=== PATIENT | male | born 1955 | race Caucasian/White ===

== ENCOUNTER 2017-10-19 01:59 | Inpatient (IN) | payer MEDICARE, MEDICAID ==
[2017-10-19 02:35] LABS: ADD MAN DIFF? NO
[2017-10-19] MEDS: FUROSEMIDE 40 MG/4 ML VIAL. IVP (02:36)
[2017-10-19] MEDS: methylPREDNISolone SOD SUCC PF 125 MG/2 ML VIAL. IV ×3 (02:36→21:19)
[2017-10-19] MEDS: ASPIRIN CHEWABLE 81 MG TABLET. PO (02:37)
[2017-10-19 02:40] LABS: BASO # 0.1 x10^3/uL (0.0-0.2); BASO % 1 % (0-3); EOS # 0.3 x10^3/uL (0.0-0.7); EOS % 3 % (0-3); HEMATOCRIT 47.2 % (39.0-53.0); HEMOGLOBIN 15.5 g/dL (13.0-17.5); LYMPH # 1.4 x10^3/uL (1.0-4.8); LYMPH % 14 % (24-48); MEAN CORPUSCULAR HEMOGLOBIN 26 pg (25-35); MEAN CORPUSCULAR HGB CONC 33 g/dL (31-37); MEAN CORPUSCULAR VOLUME 79 fL (79-100); MONO % 10 % (0-9); NEUT # 7.2 x10^3uL (1.8-7.7); NEUT % 71 % (31-73); PLATELET COUNT 217 x10^3/uL (140-400); RED BLOOD COUNT 5.99 x10^6/uL (4.30-5.70); RED CELL DISTRIBUTION WIDTH 18.7 % (11.5-14.5); WHITE BLOOD COUNT 10.1 x10^3/uL (4.0-11.0)
[2017-10-19] MEDS: IPRATRPIUM/ALBUTEROL 0.5/2.5MG 3 ML NEBU. NEB ×5 (02:40→23:39)
[2017-10-19 02:49] LABS: ANION GAP 8 (6-14); BLOOD UREA NITROGEN 24 mg/dL (8-26); BUN/CREATININE RATIO 18 (6-20); CALCIUM 8.6 mg/dL (8.5-10.1); CARBON DIOXIDE 31 mmol/L (21-32); CHLORIDE 98 mmol/L (98-107); CREATININE 1.3 mg/dL (0.7-1.3); GFR 55.9; GLUCOSE 226 mg/dL (70-99); POTASSIUM 4.1 mmol/L (3.5-5.1); SODIUM 137 mmol/L (136-145)
[2017-10-19 02:56] LABS: ALBUMIN 3.2 g/dL (3.4-5.0); ALBUMIN/GLOBULIN RATIO 0.7 (1.0-1.7); ALK PHOS 97 U/L (46-116); ALT (SGPT) 126 U/L (16-63); AST (SGOT) 54 U/L (15-37); TOTAL BILIRUBIN 0.3 mg/dL (0.2-1.0); TOTAL PROTEIN 7.6 g/dL (6.4-8.2)
[2017-10-19 02:57] LABS: TROPONINI < 0.017 ng/mL (0.000-0.055)
[2017-10-19 03:05] LABS: CKMB INDEX 1.8 % (0-4); CKMB MASS 3.7 ng/mL (0.0-3.6); CREATINE KINASE 201 U/L (39-308)
[2017-10-19 03:05] LABS: NT-PRO BNP 680 pg/mL (0-124)
[2017-10-19 09:31] LABS: BASE EXCESS ABG 3 mmol/L (-3-3); HCO3 ABG 28 mmol/L (21-28); PCO2 ABG 46 mmHg (35-46); PH ABG 7.41 (7.35-7.45); PO2 ABG 79 mmHg (65-108); SAT O2 ABG 96 % (92-99)
[2017-10-19 09:32] LABS: FIO2 ABG 44
[2017-10-19] MEDS: INSULIN GLARGINE 300 UNITS/3 ML INSULN.PEN. SQ ×2 (10:02→21:18)
[2017-10-19] MEDS: INSULIN LISPRO 300 UNITS/3 ML INSULN.PEN. SQ ×5 (10:03→18:10)
[2017-10-19] MEDS ORDERED: DEXTROSE 50% 25 GM / 50ML DISP.SYRIN. IV (11:15)
[2017-10-19] MEDS ORDERED: ALBUTEROL SULFATE 2.5 MG/3 ML NEBU. NEB (12:00)
[2017-10-19] MEDS ORDERED: BUDESONIDE 0.5 MG/2 ML NEBU. NEB (12:00)
[2017-10-19] MEDS ORDERED: IPRATRPIUM/ALBUTEROL 0.5/2.5MG 3 ML NEBU. NEB (12:00)
[2017-10-19] MEDS ORDERED: MINERAL OIL/PETROLATUM TOPICAL CREAM 113GM JAR. TP (12:00)
[2017-10-19] MEDS: BUDESONIDE 0.5 MG/2 ML NEBU. NEB ×2 (12:17→19:35)
[2017-10-19 12:27] LABS: POC GLUCOSE 325 mg/dL (70-99)
[2017-10-19 12:27] LABS: POC GLUCOSE 274 mg/dL (70-99)
[2017-10-19 12:52] LABS: CHOLESTEROL 137 mg/dL (0-200); HDLC 39 mg/dL (40-60); LDLC 48 mg/dL (0-100); NON-HDL CHOLESTEROL 98 mg/dL (0-129); TRIGLYCERIDES 249 mg/dL (0-150); VLDLC 50 mg/dL (0-40)
[2017-10-19 13:00] LABS: THYROID STIM HORMONE (TSH) 11.736 uIU/mL (0.358-3.74)
[2017-10-19] MEDS: APIXABAN 5 MG TABLET. PO ×2 (13:02→21:14)
[2017-10-19] MEDS: CHOLECALCIFEROL (VITAMIN D3) 1,000 UNIT TABLET PO (13:02)
[2017-10-19] MEDS: DOCUSATE SODIUM 100 MG CAPSULE. PO (13:03)
[2017-10-19] MEDS: FUROSEMIDE 80 MG TABLET. PO (13:03)
[2017-10-19] MEDS: POTASSIUM CHLORIDE 20 MEQ TABLET.ER. PO (13:03)
[2017-10-19] MEDS: FAMOTIDINE 20 MG TABLET. PO ×2 (13:03→21:14)
[2017-10-19] MEDS: METOPROLOL TART IMMED RELEASE 50 MG TABLET. PO ×2 (13:04→21:14)
[2017-10-19] MEDS: CALCIUM CARB/VIT D3 500/200 TABLET. PO (13:04)
[2017-10-19] MEDS: AMIODARONE HCL 200 MG TABLET. PO (13:04)
[2017-10-19] MEDS: SPIRONOLACTONE 25 MG TABLET PO (13:04)
[2017-10-19 13:10] LABS: CHOLESTEROL/HDL RATIO 3.5
[2017-10-19] MEDS: POLYETHYLENE GLYCOL 3350 17 GM PACKET. PO (13:19)
[2017-10-19] MEDS: GABAPENTIN 300 MG CAPSULE. PO ×2 (14:36→21:14)
[2017-10-19 16:15] LABS: FREE T4 0.89 ng/dL (0.76-1.46)
[2017-10-19 16:30] LABS: POC GLUCOSE 277 mg/dL (70-99)
[2017-10-19] MEDS: cefTRIAXone IV Push 1 GM VIAL. IVP (18:04)
[2017-10-19] MEDS: guaiFENesin DM 200MG/20MG 10 ML SYRUP PO (18:12)
[2017-10-19] MEDS ORDERED: NON FORMULARY ITEM (Budesonide/Formoterol Fumarate (Symbicort 160-4.5 Mcg Inhaler) 2 PUFF) IH (21:00)
[2017-10-19] MEDS: ATORVASTATIN CALCIUM 40 MG TABLET. PO (21:14)
[2017-10-19 21:16] LABS: POC GLUCOSE 285 mg/dL (70-99)
[2017-10-20] MEDS: guaiFENesin DM 200MG/20MG 10 ML SYRUP PO ×2 (02:40→08:26)
[2017-10-20] MEDS: IPRATRPIUM/ALBUTEROL 0.5/2.5MG 3 ML NEBU. NEB ×5 (03:01→20:08)
[2017-10-20] MEDS: methylPREDNISolone SOD SUCC PF 125 MG/2 ML VIAL. IV ×3 (06:13→21:08)
[2017-10-20] MEDS: ACETAMINOPHEN 325 MG TABLET. PO ×2 (06:48→21:05)
[2017-10-20] MEDS: BUDESONIDE 0.5 MG/2 ML NEBU. NEB ×2 (08:22→20:08)
[2017-10-20] MEDS: CHOLECALCIFEROL (VITAMIN D3) 1,000 UNIT TABLET PO (08:24)
[2017-10-20] MEDS: METOPROLOL TART IMMED RELEASE 50 MG TABLET. PO ×2 (08:24→21:07)
[2017-10-20] MEDS: SPIRONOLACTONE 25 MG TABLET PO (08:24)
[2017-10-20] MEDS: AMIODARONE HCL 200 MG TABLET. PO (08:25)
[2017-10-20] MEDS: DOCUSATE SODIUM 100 MG CAPSULE. PO (08:25)
[2017-10-20] MEDS: POTASSIUM CHLORIDE 20 MEQ TABLET.ER. PO (08:25)
[2017-10-20] MEDS: CETIRIZINE HCL 10 MG TABLET. PO (08:25)
[2017-10-20] MEDS: LACTOBACILLUS RHAMNOSUS GG 1 CAPSULE. PO ×2 (08:26→21:07)
[2017-10-20] MEDS: FUROSEMIDE 80 MG TABLET. PO (08:26)
[2017-10-20] MEDS: FAMOTIDINE 20 MG TABLET. PO ×2 (08:26→21:06)
[2017-10-20] MEDS: APIXABAN 5 MG TABLET. PO ×2 (08:26→21:07)
[2017-10-20] MEDS: CALCIUM CARB/VIT D3 500/200 TABLET. PO (08:26)
[2017-10-20] MEDS: GABAPENTIN 300 MG CAPSULE. PO ×3 (08:26→21:05)
[2017-10-20] MEDS: POLYETHYLENE GLYCOL 3350 17 GM PACKET. PO (08:26)
[2017-10-20 08:35] LABS: POC GLUCOSE 308 mg/dL (70-99)
[2017-10-20] MEDS: INSULIN GLARGINE 300 UNITS/3 ML INSULN.PEN. SQ ×2 (08:37→21:49)
[2017-10-20] MEDS: INSULIN LISPRO 300 UNITS/3 ML INSULN.PEN. SQ ×4 (08:38→21:48)
[2017-10-20] MEDS ORDERED: NON FORMULARY ITEM (Tiotropium Bromide (Spiriva) 2 INH) IH (09:00)
[2017-10-20 11:57] LABS: POC GLUCOSE 411 mg/dL (70-99)
[2017-10-20 15:08] LABS: SEDIMENTATION RATE 7 (0-15)
[2017-10-20] MEDS: ANTI-COAG MONITOR BY PHARMACY. MC (15:45)
[2017-10-20] MEDS: cefTRIAXone IV Push 1 GM VIAL. IVP (17:00)
[2017-10-20 17:13] LABS: POC GLUCOSE 342 mg/dL (70-99)
[2017-10-20 20:42] LABS: POC GLUCOSE 456 mg/dL (70-99)
[2017-10-20] MEDS: ATORVASTATIN CALCIUM 40 MG TABLET. PO (21:06)
[2017-10-20] MEDS ORDERED: DEXTROSE 50% 25 GM / 50ML DISP.SYRIN. IV (21:30)
[2017-10-21 00:22] LABS: POC GLUCOSE 416 mg/dL (70-99)
[2017-10-21] MEDS: IPRATRPIUM/ALBUTEROL 0.5/2.5MG 3 ML NEBU. NEB ×5 (04:00→15:20)
[2017-10-21] MEDS: methylPREDNISolone SOD SUCC PF 125 MG/2 ML VIAL. IV ×2 (05:44→14:00)
[2017-10-21] MEDS: BUDESONIDE 0.5 MG/2 ML NEBU. NEB (06:53)
[2017-10-21 08:04] LABS: POC GLUCOSE 429 mg/dL (70-99)
[2017-10-21] MEDS: POTASSIUM CHLORIDE 20 MEQ TABLET.ER. PO (08:52)
[2017-10-21] MEDS: LACTOBACILLUS RHAMNOSUS GG 1 CAPSULE. PO (08:52)
[2017-10-21] MEDS: CALCIUM CARB/VIT D3 500/200 TABLET. PO (08:53)
[2017-10-21] MEDS: SPIRONOLACTONE 25 MG TABLET PO (08:53)
[2017-10-21] MEDS: DOCUSATE SODIUM 100 MG CAPSULE. PO (08:53)
[2017-10-21] MEDS: APIXABAN 5 MG TABLET. PO (08:53)
[2017-10-21] MEDS: CHOLECALCIFEROL (VITAMIN D3) 1,000 UNIT TABLET PO (08:53)
[2017-10-21] MEDS: FAMOTIDINE 20 MG TABLET. PO (08:54)
[2017-10-21] MEDS: METOPROLOL TART IMMED RELEASE 50 MG TABLET. PO (08:54)
[2017-10-21] MEDS: AMIODARONE HCL 200 MG TABLET. PO (08:54)
[2017-10-21] MEDS: GABAPENTIN 300 MG CAPSULE. PO ×2 (08:54→14:00)
[2017-10-21] MEDS: FUROSEMIDE 80 MG TABLET. PO (08:54)
[2017-10-21] MEDS: POLYETHYLENE GLYCOL 3350 17 GM PACKET. PO (08:55)
[2017-10-21] MEDS: INSULIN GLARGINE 300 UNITS/3 ML INSULN.PEN. SQ (09:09)
[2017-10-21] MEDS: INSULIN LISPRO 300 UNITS/3 ML INSULN.PEN. SQ ×7 (09:09→17:59)
[2017-10-21 11:38] LABS: POC GLUCOSE 454 mg/dL (70-99)
[2017-10-21 14:08] LABS: POC GLUCOSE 502 mg/dL (70-99)
[2017-10-21 14:46] LABS: ANION GAP 9 (6-14); BLOOD UREA NITROGEN 34 mg/dL (8-26); BUN/CREATININE RATIO 26 (6-20); CALCIUM 9.5 mg/dL (8.5-10.1); CARBON DIOXIDE 30 mmol/L (21-32); CHLORIDE 91 mmol/L (98-107); CREATININE 1.3 mg/dL (0.7-1.3); GFR 55.9; GLUCOSE 471 mg/dL (70-99); POTASSIUM 4.3 mmol/L (3.5-5.1); SODIUM 130 mmol/L (136-145)
[2017-10-21 14:54] LABS: ALBUMIN 3.6 g/dL (3.4-5.0); ALBUMIN/GLOBULIN RATIO 0.8 (1.0-1.7); ALK PHOS 104 U/L (46-116); ALT (SGPT) 76 U/L (16-63); AST (SGOT) 14 U/L (15-37); TOTAL BILIRUBIN 0.5 mg/dL (0.2-1.0); TOTAL PROTEIN 8.3 g/dL (6.4-8.2)
[2017-10-21 15:54] LABS: POC GLUCOSE 382 mg/dL (70-99)
[2017-10-21] MEDS: ANTI-COAG MONITOR BY PHARMACY. MC (16:54)
[2017-10-21] MEDS: cefTRIAXone IV Push 1 GM VIAL. IVP (17:00)
[2017-10-21 20:42] LABS: POC GLUCOSE 337 mg/dL (70-99)
== END 2017-10-21 18:05 | disposition home or self-care (01) | DRG 291 ==
LOC: ER 01:59 → 2 SOUTH 03:30
PROC: 5A09357 Assistance with Respiratory Ventilation, Less than 24 Consecutive Hours, Continuous Positive Airway Pressure (ICD-10-PCS; principal; 2017-10-19)
PROC: 5A09357 Assistance with Respiratory Ventilation, Less than 24 Consecutive Hours, Continuous Positive Airway Pressure (ICD-10-PCS; 2017-10-20)
DX: I11.0 Hypertensive heart disease with heart failure (principal); J96.21 Acute and chronic respiratory failure with hypoxia; J44.1 Chronic obstructive pulmonary disease with (acute) exacerbation; J84.9 Interstitial pulmonary disease, unspecified; I50.33 Acute on chronic diastolic (congestive) heart failure; D86.9 Sarcoidosis, unspecified; E66.01 Morbid (severe) obesity due to excess calories; Z68.35 Body mass index [BMI] 35.0-35.9, adult; E78.5 Hyperlipidemia, unspecified; F17.210 Nicotine dependence, cigarettes, uncomplicated; E11.40 Type 2 diabetes mellitus with diabetic neuropathy, unspecified; I25.10 Atherosclerotic heart disease of native coronary artery without angina pectoris; I27.81 Cor pulmonale (chronic); I48.0 Paroxysmal atrial fibrillation; J98.01 Acute bronchospasm; Z79.01 Long term (current) use of anticoagulants; Z79.4 Long term (current) use of insulin; Z82.49 Family history of ischemic heart disease and other diseases of the circulatory system; Z99.81 Dependence on supplemental oxygen; Z88.1 Allergy status to other antibiotic agents; J84.10 Pulmonary fibrosis, unspecified; Z71.6 Tobacco abuse counseling
CPT/HCPCS: 36415; 71045; 71250; 80053; 80061; 82553; 82805; 82962; 83880; 84439; 84443; 84484; 85025; 85610; 85651; 93005; 93306; 93923; 93970; 94640; 94660; 94760; 96374; 96375; 99291; 99291-25; J0696; J1815; J1940; J2930; J7620; J7626